=== PATIENT | female | born 1985 | race Caucasian/White ===

== ENCOUNTER 2020-05-19 07:11 | Day surgery (SDC) | payer OTHER ==
[~2020-05-19] VITALS: Ht 170.2 cm; Wt 85.8 kg
[~2020-05-19 07:11] MED LIST: BUPIVACAINE/PF 0.5% ONE; LIDOCAINE-MPF 1%, 5ML ONE
[2020-05-19] MEDS ORDERED: MONT10TA6 PO (07:48)
[2020-05-19] MEDS ORDERED: VILA40TA PO (07:48)
[2020-05-19] MEDS ORDERED: METF500T17 PO (07:48)
[2020-05-19] MEDS ORDERED: CHLORHEXIDINE 15 ML UDC MM ONE (08:00)
[2020-05-19] MEDS ORDERED: LACTATED RINGERS 1,000 ML IV SCH (08:00)
[2020-05-19] MEDS ORDERED: PLEASE ENTER ALLERGIES MC SCH (08:00)
[2020-05-19] MEDS ORDERED: CARI4.5C PO (08:01)
[2020-05-19] MEDS ORDERED: ALBU18HF HHN (08:01)
[2020-05-19 08:02] VITALS: BP 116/82
[2020-05-19 08:02] LABS: HCG UR SG 1.017 (1.003-1.030)
[2020-05-19] MEDS ORDERED: MIDAZOLAM 1 MG/ML, 2ML ONE (08:52)
[2020-05-19] MEDS ORDERED: FENTANYL PF 250 MCG/5ML ONE (08:52)
[2020-05-19] MEDS ORDERED: BUPIVACAINE/PF 0.25% ONE (09:02)
[2020-05-19] MEDS ORDERED: SUCCINYLCHOLINE 20 MG/ML, 10ML ONE (09:22)
[2020-05-19] MEDS ORDERED: ONDANSETRON 2MG/ML, 2ML ONE (09:22)
[2020-05-19] MEDS ORDERED: CEFAZOLIN 1,000 MG ONE (09:22)
[2020-05-19] MEDS ORDERED: PROPOFOL 10 MG/ML, 20ML ONE (09:22)
[2020-05-19] MEDS ORDERED: DEXAMETHASONE 4 MG/ML, 1ML ONE (09:22)
[2020-05-19] MEDS ORDERED: ROCURONIUM 10 MG/ML,10ML ONE (09:22)
[2020-05-19] MEDS ORDERED: METOCLOPRAMIDE 5 MG/ML, 2ML IV PRN (10:00)
[2020-05-19] MEDS ORDERED: MEPERIDINE/PF 25MG/0.5ML IVPush PRN (10:00)
[2020-05-19] MEDS ORDERED: HYDROmorphone 1 MG/ML, 1ML INJ IV PRN (10:00)
[2020-05-19] MEDS ORDERED: PROMETHAZINE 25 MG/ML, 1ML IV PRN (10:00)
[2020-05-19] MEDS ORDERED: hydrALAzine 20 MG/ML, 1ML IV PRN (10:00)
[2020-05-19] MEDS ORDERED: ONDANSETRON 2MG/ML, 2ML IVPush PRN (10:00)
[2020-05-19] MEDS ORDERED: DIAZEPAM 5 MG/ML, 2ML IV PRN ×2 (10:00)
[2020-05-19] MEDS ORDERED: OXYcodone 5 MG/5 ML ORAL.SOL UDC PO PRN (10:00)
[2020-05-19] MEDS ORDERED: KETOROLAC 30 MG/1 ML IV PRN (10:00)
[2020-05-19] MEDS ORDERED: LABETALOL 5MG/ML, 20ML IV PRN (10:00)
[2020-05-19] MEDS ORDERED: ALBUTEROL SULFATE 2.5 MG/3 ML NPPB PRN (10:00)
[2020-05-19] MEDS ORDERED: MEPERIDINE/PF 25MG/ML,1ML ONE (10:44)
[2020-05-19] MEDS ORDERED: FENTANYL PF 100 MCG/2ML ONE (10:57)
[2020-05-19] MEDS ORDERED: OXYcodone 5 MG/5 ML ORAL.SOL UDC ONE (10:57)
[2020-05-19] MEDS: FENTANYL PF 100 MCG/2ML IV PRN ×2 (10:59→11:11)
== END 2020-05-19 12:15 | disposition home or self-care (01) ==
LOC: OUT 07:11
PROVIDERS: ATTEND Surgery Surgery of the Hand
DX: G56.22 Lesion of ulnar nerve, left upper limb (principal); J45.909 Unspecified asthma, uncomplicated; Z88.5 Allergy status to narcotic agent; Z79.899 Other long term (current) drug therapy; Z20.828 Contact with and (suspected) exposure to other viral communicable diseases; Z72.89 Other problems related to lifestyle; Z82.3 Family history of stroke; Z98.890 Other specified postprocedural states
CPT/HCPCS: 64718; 64719; 81025; 87635; J0330; J0690; J1100; J2175; J2250; J2405; J2704; J3010; J3490; J7120